=== PATIENT | male | born 1975 | race Two or more races ===

== ENCOUNTER 2016-10-13 02:11 | Emergency (ER) | payer OTHER ==
[2016-10-13] MEDS ORDERED: HYDROCODONE/ACETAMINOPHEN 5/325MG TABLET ONE ×2 (03:12)
[2016-10-13] MEDS ORDERED: DIAZEPAM 5 MG TABLET ONE (03:12)
== END 2016-10-13 03:46 | disposition home or self-care (01) ==
LOC: ED 02:11
DX: M54.32 Sciatica, left side (principal); X50.1XXA Overexertion from prolonged static or awkward postures, initial encounter
CPT/HCPCS: 99283 ×2; A9270 ×3